=== PATIENT | male | born 1945 | race Caucasian/White ===

== ENCOUNTER 2016-12-09 00:59 | Day surgery (SDC) | payer MEDICARE ==
[2016-12-09] VITALS (9 sets, daily range): BP systolic 131–174; BP diastolic 75–103; PULSE 65–103; RESP 14–20; O2SAT 88–100
[~2016-12-09] VITALS: Ht 177.8 cm; Wt 77.2 kg
[~2016-12-09 00:59] MED LIST: CHOL5000 PO; DILT120C86 PO; DILT30TA PO; FLEC100T2 PO; MAGN200T PO; MULT-1018 PO; OMEG-38 PO; UBID100C PO; WARF5TAB7 PO; nattokinase
[2016-12-09] MEDS ORDERED: 0.9% Sodium Chloride 1,000 ML ONE (12:37)
[2016-12-09] MEDS ORDERED: Atropine 1 mg/10 mL (Code) Syringe ONE (14:13)
[2016-12-09] MEDS ORDERED: Methohexital 10 mg/mL 50 mL Inj ONE (14:14)
[2016-12-09] MEDS ORDERED: Flumazenil 0.1 mg/mL 5 mL Inj IV ONE (14:14)
[2016-12-09 14:58] LABS: BASOPHILS % (AUTO) 0.6 % (0-3); EOSINOPHILS % (AUTO) 1.2 % (0-5); MONOCYTES % (AUTO) 10.3 % (4-12); Mean Corpuscular Hemoglobin 29.4 pg (27.0-35.0); NEUTROPHILS % (AUTO) 52.6 % (40-74); Platelet Count 216 bil/L (150-400)
[2016-12-09] MEDS ORDERED: KRIL1CAP PO (15:01)
--- NOTE | 2016-12-09 15:07 | NUR ---
Admit [facility] Admitted to [facility] about 1410. VSS. Denies pain. Rythm difficult to assess, ST vs 2:1 Flutter. 12 lead EKG done. Still not clear, showed to Dr. Mckeon and stated he thought it was Flutter. INR 2.9. IV started and labs sent. See EMR for further info and assessment. Awaiting MD.
[2016-12-09 15:35] LABS: INR 2.6 ratio
--- NOTE | 2016-12-09 17:08 | PROCED ---
[address] [address] PROCEDURE NOTE PATIENT: ERON AGUILLON : 1945 MR#: [id number] ADMIT: 12/09/2016 JOB ID: [id number] DATE OF SERVICE: 12/09/2016 PREOPERATIVE DIAGNOSIS(ES): Atypical atrial flutter. POSTOPERATIVE DIAGNOSIS(ES): Sinus rhythm. PROCEDURE PERFORMED: Direct current cardioversion. SURGEON: Annual Giving Director: Srinath Mckeon MD, electrophysiology attending SEDATION: Versed 1 mg and a total of 55 mg of Brevital given in 35, 10, and 10 mg aliquots. INDICATION: The patient is a pleasant 71-year-old man with previous atrial fibrillation ablation who presents in atypical atrial flutter. After discussion of the risks and benefits of cardioversion, he opted to proceed. PROCEDURAL DESCRIPTION: Following informed consent, the patient was taken to the procedure suite in a fasting state where defibrillator patches were placed in the anterior and posterior positions. After adequate sedation, a 200 joule biphasic synchronized shock was used to sinus rhythm. He will go back to the recovery room and discharge home for close followup. COMPLICATIONS: None. ESTIMATED BLOOD LOSS: None. IMPRESSION: Successful direct current cardioversion. PLAN: 1. Recovery and discharge from the [facility]. 2. Continued anticoagulation along with diltiazem and flecainide. 3. Follow up with me in clinic in four weeks. ATTENDING STATEMENT: Srinath Mckeon MD, electrophysiology attending, was present for and supervised/performed all aspects of this procedure.
--- NOTE | 2016-12-09 17:58 | NUR ---
Procedure/Recovery/Discharge Dr. Mckeon in about 1615 and spoke to pt. Sedation commenced at 1625. Cardioverted to SR at 1628 with 200J after Versed 1mg and Brevital 55mg in divided doses IV. Back to baseline by 1637 but continued to monitor while preparing for discharge. Eating and drinking without problems. Discharge instructions given, see sheets. Verbalizes understanding. IV discontinued intact. Discharged home ambulatory with all belongings in no distress at 1730.
== END 2016-12-09 23:59 | disposition home or self-care (01) ==
LOC: SOUO 00:59
PROVIDERS: ATTEND Internal Medicine Cardiovascular Disease
DX: I48.4 Atypical atrial flutter (principal); Z98.890 Other specified postprocedural states; I48.0 Paroxysmal atrial fibrillation; Z79.899 Other long term (current) drug therapy; I10 Essential (primary) hypertension; Z79.01 Long term (current) use of anticoagulants
CPT/HCPCS: 36415; 80048; 85025; 85610; 92960; 93005; 99151; J2250; J7030